=== PATIENT | male | born 1960 | race Caucasian/White ===

== ENCOUNTER 2018-02-19 19:38 | Emergency (ER) | payer MEDICARE, MEDICAID ==
[~2018-02-19] VITALS: Ht 180.3 cm; Wt 75.8 kg
[~2018-02-19 19:38] MED LIST: ARIP5TAB4 PO; BUSP15TA3 PO; FLUO20CA39 PO; FLUT10SP INH; GLIM4TAB42 PO; GLYB-97 PO; KCL; LANTUS SQ; LISI-222 PO; MECL12.5 PO; METF500T PO; METO100T7 PO; MONT10TA21 PO; OMEP-84 PO; PEG; VAL5T PO; [UNRECOGNIZED DRUG - OTHER]
[2018-02-19 20:32] VITALS: BP 118/76
== END 2018-02-19 23:39 | disposition left against medical advice (07) ==
LOC: ER 19:38
DX: M25.551 Pain in right hip (principal); Z53.21 Procedure and treatment not carried out due to patient leaving prior to being seen by health care provider

== ENCOUNTER 2018-03-08 07:49 | Emergency (ER) | payer MEDICARE, MEDICAID ==
[~2018-03-08] VITALS: Ht 180.3 cm; Wt 74.0 kg
[2018-03-08 07:55] VITALS: BP 126/78
[2018-03-08] MEDS ORDERED: NAPR-56 PO (08:12)
== END 2018-03-08 08:18 | disposition home or self-care (01) ==
LOC: ER 07:49
DX: M79.604 Pain in right leg (principal); E78.00 Pure hypercholesterolemia, unspecified; I10 Essential (primary) hypertension; E11.9 Type 2 diabetes mellitus without complications; Z87.891 Personal history of nicotine dependence; Z60.2 Problems related to living alone; Z88.0 Allergy status to penicillin; Z79.4 Long term (current) use of insulin; Z79.84 Long term (current) use of oral hypoglycemic drugs; Z79.899 Other long term (current) drug therapy
CPT/HCPCS: 99282

== ENCOUNTER 2020-10-08 15:33 | Emergency (ER) | payer BC, MEDICAID ==
[~2020-10-08] VITALS: Ht 180.3 cm; Wt 84.9 kg
[~2020-10-08 15:33] MED LIST changes: +ARIP5TAB14 PO; -ARIP5TAB4 PO
[2020-10-08 15:34] VITALS: BP 138/91
[2020-10-08] MEDS ORDERED: PERM60CR19 TOP (16:24)
== END 2020-10-08 18:01 | disposition home or self-care (01) ==
LOC: ER 15:34
DX: B86 Scabies (principal); E78.00 Pure hypercholesterolemia, unspecified; I10 Essential (primary) hypertension; E11.9 Type 2 diabetes mellitus without complications; Z86.69 Personal history of other diseases of the nervous system and sense organs; Z60.2 Problems related to living alone; Z88.0 Allergy status to penicillin; Z88.1 Allergy status to other antibiotic agents; Z88.8 Allergy status to other drugs, medicaments and biological substances; Z79.4 Long term (current) use of insulin; Z79.899 Other long term (current) drug therapy
CPT/HCPCS: 99283

== ENCOUNTER 2020-10-16 15:39 | Emergency (ER) | payer BC, MEDICAID ==
[~2020-10-16] VITALS: Ht 177.8 cm; Wt 81.8 kg
[~2020-10-16 15:39] MED LIST changes: +PERM60CR19 TOP
[2020-10-16 15:43] VITALS: BP 153/89
[2020-10-16] MEDS ORDERED: ALBU8HFA PO (17:20)
[2020-10-16] MEDS ORDERED: DEXA6TAB PO (17:20)
[2020-10-16] MEDS ORDERED: BENZ-16 PO (17:22)
[2020-10-16] MEDS ORDERED: ONDA4TAB6 PO (17:23)
[2020-10-16] MEDS ORDERED: ondansetron 4mg rapidly disintigrating tab PO ONE (17:25)
[2020-10-16] MEDS ORDERED: acetaminophen 325mg tablet PO ONE (17:25)
[2020-10-16] MEDS ORDERED: dexamethasone 4mg tablet PO ONE (17:25)
== END 2020-10-16 17:44 | disposition home or self-care (01) ==
LOC: ER 15:40
DX: U07.1 COVID-19 (principal); J02.9 Acute pharyngitis, unspecified; R05 Cough; R50.9 Fever, unspecified; R11.0 Nausea; R19.7 Diarrhea, unspecified; E78.00 Pure hypercholesterolemia, unspecified; I10 Essential (primary) hypertension; E11.9 Type 2 diabetes mellitus without complications; Z86.69 Personal history of other diseases of the nervous system and sense organs; Z60.2 Problems related to living alone; Z88.0 Allergy status to penicillin; Z88.1 Allergy status to other antibiotic agents; Z88.8 Allergy status to other drugs, medicaments and biological substances; Z79.4 Long term (current) use of insulin; Z79.899 Other long term (current) drug therapy
CPT/HCPCS: 71045; 99283

== ENCOUNTER 2021-08-02 11:26 | Emergency (ER) | payer BC, MEDICAID ==
[~2021-08-02] VITALS: Ht 180.3 cm; Wt 81.8 kg
[~2021-08-02 11:26] MED LIST changes: +DEXA6TAB PO; +DIAZ5TAB22 PO; +ONDA4TAB6 PO; -PERM60CR19 TOP; -VAL5T PO
[2021-08-02 11:48] VITALS: BP 140/83
[2021-08-02] MEDS ORDERED: FLUT16SP2 BOTHNARES (11:53)
[2021-08-02] MEDS ORDERED: LEVO500T90 PO (11:53)
[2021-08-09] MEDS ORDERED: CLIN300C70 PO (09:18)
== END 2021-08-02 12:01 | disposition home or self-care (01) ==
LOC: ER 11:27
DX: H66.91 Otitis media, unspecified, right ear (principal); H72.91 Unspecified perforation of tympanic membrane, right ear; J01.00 Acute maxillary sinusitis, unspecified; G40.909 Epilepsy, unspecified, not intractable, without status epilepticus; E78.00 Pure hypercholesterolemia, unspecified; I10 Essential (primary) hypertension; E11.9 Type 2 diabetes mellitus without complications; Z79.899 Other long term (current) drug therapy; Z79.2 Long term (current) use of antibiotics; Z79.4 Long term (current) use of insulin; Z88.0 Allergy status to penicillin; Z88.1 Allergy status to other antibiotic agents; Z88.8 Allergy status to other drugs, medicaments and biological substances
CPT/HCPCS: 99283

== ENCOUNTER 2021-08-07 11:26 | Emergency (ER) | payer BC, MEDICAID ==
[~2021-08-07] VITALS: Ht 180.3 cm; Wt 84.0 kg
[~2021-08-07 11:26] MED LIST changes: +FLUT16SP2 BOTHNARES; +LEVO500T90 PO
[2021-08-07] MEDS ORDERED: CEFD300C3 PO (11:59)
[2021-08-09] MEDS ORDERED: CLIN300C70 PO (09:18)
== END 2021-08-07 12:25 | disposition home or self-care (01) ==
LOC: ER 11:27
DX: H72.91 Unspecified perforation of tympanic membrane, right ear (principal); H66.92 Otitis media, unspecified, left ear; H92.03 Otalgia, bilateral; E78.00 Pure hypercholesterolemia, unspecified; I10 Essential (primary) hypertension; E11.9 Type 2 diabetes mellitus without complications; Z86.69 Personal history of other diseases of the nervous system and sense organs; Z60.2 Problems related to living alone; Z88.0 Allergy status to penicillin; Z88.1 Allergy status to other antibiotic agents; Z88.8 Allergy status to other drugs, medicaments and biological substances; Z79.2 Long term (current) use of antibiotics; Z79.4 Long term (current) use of insulin; Z79.899 Other long term (current) drug therapy
CPT/HCPCS: 99283

== ENCOUNTER → 2021-08-09 | Emergency (ER) | payer BC, MEDICAID ==
[~2021-08-09] VITALS: Ht 180.3 cm; Wt 84.1 kg
[~2021-08-09] MED LIST changes: +CEFD300C3 PO; +CLIN300C70 PO
[2021-08-09 09:17] VITALS: BP 145/87
== END | disposition home or self-care (01) ==
LOC: ER 09:04
DX: K04.7 Periapical abscess without sinus (principal); G40.909 Epilepsy, unspecified, not intractable, without status epilepticus; E78.00 Pure hypercholesterolemia, unspecified; I10 Essential (primary) hypertension; E11.9 Type 2 diabetes mellitus without complications; Z88.0 Allergy status to penicillin; Z88.1 Allergy status to other antibiotic agents; Z88.8 Allergy status to other drugs, medicaments and biological substances; Z79.899 Other long term (current) drug therapy; Z79.4 Long term (current) use of insulin; Z79.2 Long term (current) use of antibiotics; Z86.19 Personal history of other infectious and parasitic diseases
CPT/HCPCS: 99283

== ENCOUNTER 2021-08-16 11:39 | Emergency (ER) | payer BC, MEDICAID ==
[~2021-08-16] VITALS: Ht 180.3 cm; Wt 84.1 kg
[~2021-08-16 11:39] MED LIST changes: -CEFD300C3 PO; -LEVO500T90 PO
[2021-08-16 12:02] VITALS: BP 161/88
[2021-08-16] MEDS ORDERED: OFLO5DRO5 EACH EAR (12:19)
[2021-08-16] MEDS ORDERED: CLIN300C70 PO (12:19)
== END 2021-08-16 12:44 | disposition home or self-care (01) ==
LOC: ER 11:39
DX: H66.91 Otitis media, unspecified, right ear (principal); G40.909 Epilepsy, unspecified, not intractable, without status epilepticus; E78.00 Pure hypercholesterolemia, unspecified; I10 Essential (primary) hypertension; E11.9 Type 2 diabetes mellitus without complications; Z79.899 Other long term (current) drug therapy; Z79.2 Long term (current) use of antibiotics; Z79.4 Long term (current) use of insulin; Z88.8 Allergy status to other drugs, medicaments and biological substances; Z88.0 Allergy status to penicillin; Z88.1 Allergy status to other antibiotic agents
CPT/HCPCS: 99283